=== PATIENT | male | born 2000 | race Caucasian/White ===

== ENCOUNTER 2022-04-09 10:30 | Emergency (ER) | payer OTHER | END 2022-04-09 11:32 | disposition home or self-care (01) | LOC: FER 10:30 | DX: S01.21XA Laceration without foreign body of nose, initial encounter (principal); F17.210 Nicotine dependence, cigarettes, uncomplicated; Z23 Encounter for immunization; W45.8XXA Other foreign body or object entering through skin, initial encounter; Z28.310 Unvaccinated for COVID-19 | CPT/HCPCS: 90471; 90715 ==